=== PATIENT | male | born 1980 ===

== ENCOUNTER 2020-08-28 09:20 | Emergency (ER) | payer SELFPAY ==
[~2020-08-28] VITALS: Ht 175.3 cm; Wt 114.0 kg
[2020-08-28 09:28] VITALS: BP 168/84
[2020-08-28] MEDS ORDERED: HYDR-2759 PO (09:38)
[2020-08-28] MEDS ORDERED: PRED-220 PO (09:38)
--- NOTE | 2020-08-28 09:39 | ED.ADGEN ---
Past Medical History Past Medical History: No Pertinent History Past Surgical History: No Surgical History Smoking Status: Never Smoker Alcohol Use: Rarely General Adult EDM: Chief Complaint: UPPER EXTREMITY PAIN HPI: HPI: Patient is a 40-year-old male who arrives ambulatory to the emergency department complaining of bilateral wrist pain. Patient has known history of carpal tunnel syndrome and is scheduled for surgery in his home state of [place] in 3 weeks. Patient states he has been taking medications as part of her routine however he is not experiencing any relief during this time. The patient states despite his pain and discomfort he has not had any new injuries. He further denies injury or pain of his neck, chest or upper back otherwise. He is awake, alert and nontoxic-appearing. He is neurologically intact Review of Systems: Review of Systems: Constitutional: Denies fever or chills. [] Eyes: Denies change in visual acuity. [] HENT: Denies nasal congestion or sore throat. [] Respiratory: Denies cough or shortness of breath. [] Cardiovascular: Denies chest pain or edema. [] GI: Denies abdominal pain, nausea, vomiting, bloody stools or diarrhea. [] : Denies dysuria. [] Musculoskeletal: Reports joint pain/wrist pain. Denies back pain. [] Integument: Denies rash. [] Neurologic: Denies headache, focal weakness or sensory changes. [] Endocrine: Denies polyuria or polydipsia. [] Lymphatic: Denies swollen glands. [] Psychiatric: Denies depression or anxiety. [] Physical Exam: PE: Constitutional: Well developed, well nourished, no acute distress, non-toxic appearance. [] HENT: Normocephalic, atraumatic, bilateral external ears normal, oropharynx moist, no oral exudates, nose normal. [] Eyes: PERRLA, EOMI, conjunctiva normal, no discharge. [] Neck: Normal range of motion, no tenderness, supple, no stridor. [] Cardiovascular:Heart rate regular rhythm, no murmur [] Lungs & Thorax: Bilateral breath sounds clear to auscultation [] Abdomen: Bowel sounds normal, soft, no tenderness, no masses, no pulsatile masses. [] Skin: Warm, dry, no erythema, no rash. [] Back: No tenderness, no CVA tenderness. [] Extremities: Positive Tinel test bilaterally. No cyanosis, no clubbing, ROM intact, no edema. [] Neurologic: Alert and oriented X 3, normal motor function, normal sensory function, no focal deficits noted. [] Psychologic: Affect normal, judgement normal, mood normal. [] Current Patient Data: Vital Signs: Vital Signs Date Time Temp Pulse Resp B/P (MAP) Pulse Ox O2 Delivery O2 Flow Rate FiO2 08/28/20 09:28 98.3 98 16 168/84 (112) 97 Room Air 98.3 EKG: EKG: [] Heart Score: C/O Chest Pain: No Risk Factors: Risk Factors: DM, Current or recent (<one month) smoker, HTN, HLP, family history of CAD, obesity. Risk Scores: Score 0 - 3: 2.5% MACE over next 6 weeks - Discharge Home Score 4 - 6: 20.3% MACE over next 6 weeks - Admit for Clinical Observation Score 7 - 10: 72.7% MACE over next 6 weeks - Early Invasive Strategies Radiology/Procedures: Radiology/Procedures: [] Course & Med Decision Making: Course & Med Decision Making During the patient's evaluation he made it very clear that he desired narcotic medication for his carpal tunnel syndrome. I relented and was going to provide him with a prescription against my objection as he is visiting from out of town. Prior to discharge the patient eloped without any communication to nursing staff or myself. Numerous attempts were made to locate the patient and proved to be unsuccessful. Patient was unable to be provided any discharge information or prescriptions. [] Dragon Disclaimer: Dian Disclaimer: This electronic medical record was generated, in whole or in part, using a voice recognition dictation system. Departure Departure Impression: Primary Impression: Carpal tunnel syndrome on both sides Disposition: 07 LEFT AWOL/ELOPED Condition: STABLE Patient Instructions: Carpal Tunnel Syndrome Scripts Hydrocodone/Acetaminophen (Hydrocodone-Acetamin 5-325 mg) 1 Each Tablet 1 EACH PO Q6HRS for 3 Days, #12 TAB Prov: TITA HUNTER DO 08/28/20 Prednisone (PREDNISONE ) 10 Mg Tablet 10 MG PO UD for PREDNISONE TAPER, #39 TAB 0 Refills Take 3 tablets by mouth twice a day for 3 days, then take 2 tablets by mouth twice a day for 3 days, then take 1 tablet by mouth twice a day for 3 days, then take 1 tablet by mouth daily x 3 days, then stop. Prov: TITA HUNTER DO 08/28/20 TITA HUNTER DO Aug 28, 2020 09:39
== END 2020-08-28 10:08 | disposition left against medical advice (07) ==
LOC: ER 09:20
DX: G56.03 Carpal tunnel syndrome, bilateral upper limbs (principal); M25.531 Pain in right wrist; M25.532 Pain in left wrist
CPT/HCPCS: 99283